=== PATIENT | male | born 1960 | race Caucasian/White ===

== ENCOUNTER → 2023-07-19 06:32 | Day surgery (SDC) | payer OTHER, SELFPAY | LOC: GI 06:32 | PROVIDERS: ATTENDING PHYSICIAN Surgery | DX: Z12.11 Encounter for screening for malignant neoplasm of colon (principal); K64.9 Unspecified hemorrhoids; D12.2 Benign neoplasm of ascending colon; D12.3 Benign neoplasm of transverse colon | CPT/HCPCS: 45380; 45381; 88305 ==

== ENCOUNTER → 2023-08-17 07:49 | Outpatient (REF) | payer OTHER, SELFPAY | LOC: RAD 07:49 | PROVIDERS: ATTENDING PHYSICIAN Internal Medicine Hematology & Oncology; FAMILY PHYSICIAN Family Medicine | DX: E83.119 Hemochromatosis, unspecified (principal); K74.00 Hepatic fibrosis, unspecified; C64.1 Malignant neoplasm of right kidney, except renal pelvis | CPT/HCPCS: 71260; 74177; Q9967 ==

== ENCOUNTER 2023-10-10 06:29 | Day surgery (SDC) | payer OTHER, SELFPAY ==
[2023-10-10 10:45] VITALS: BMI 31.2
[2023-10-10 10:46] VITALS: BP 151/79; BMI 31.2
[2023-10-10 13:24] VITALS: BP 146/92
[2023-10-10 13:30] VITALS: BP 160/85
[2023-10-10 13:45] VITALS: BP 158/86
[2023-10-10 14:00] VITALS: BP 152/89
== END 2023-10-10 14:21 | disposition home or self-care (01) ==
LOC: GI 06:29
PROVIDERS: ATTENDING PHYSICIAN Internal Medicine Gastroenterology
DX: K64.0 First degree hemorrhoids (principal); K63.5 Polyp of colon; D12.2 Benign neoplasm of ascending colon; D12.3 Benign neoplasm of transverse colon; D12.6 Benign neoplasm of colon, unspecified
CPT/HCPCS: 45390; 45385; 88305

== ENCOUNTER 2024-05-23 06:18 | Day surgery (SDC) | payer OTHER, SELFPAY ==
[2024-05-23 09:36] VITALS: BMI 32.3
[2024-05-23 09:44] VITALS: BP 142/84; BMI 32.3
[2024-05-23 11:46] VITALS: BP 137/72
[2024-05-23 12:00] VITALS: BP 153/85
[2024-05-23 12:09] VITALS: BP 160/84
== END 2024-05-23 12:45 | disposition home or self-care (01) ==
LOC: SDS 06:18
PROVIDERS: ATTENDING PHYSICIAN Internal Medicine Gastroenterology
DX: Z12.11 Encounter for screening for malignant neoplasm of colon (principal); K63.89 Other specified diseases of intestine; K64.0 First degree hemorrhoids; Z86.0101 Personal history of adenomatous and serrated colon polyps; Z98.890 Other specified postprocedural states
CPT/HCPCS: 45385; 88305

== ENCOUNTER → 2024-08-23 08:20 | Outpatient (REF) | payer OTHER, SELFPAY | LOC: RAD 08:20 | PROVIDERS: ATTENDING PHYSICIAN Internal Medicine Hematology & Oncology; FAMILY PHYSICIAN Family Medicine | DX: E83.119 Hemochromatosis, unspecified (principal); K74.00 Hepatic fibrosis, unspecified; C64.1 Malignant neoplasm of right kidney, except renal pelvis | CPT/HCPCS: 71260; 74177; Q9967 ==

== ENCOUNTER → 2024-09-02 07:29 | Outpatient (REF) | payer OTHER, SELFPAY | LOC: MRI 3T 07:29 | PROVIDERS: ATTENDING PHYSICIAN Internal Medicine Hematology & Oncology; FAMILY PHYSICIAN Family Medicine | DX: E83.119 Hemochromatosis, unspecified (principal); K74.00 Hepatic fibrosis, unspecified; C64.1 Malignant neoplasm of right kidney, except renal pelvis | CPT/HCPCS: 74183; A9575 ==